=== PATIENT | female | born 1985 ===

== ENCOUNTER 2022-02-02 14:07 | Outpatient (CLI) | payer OTHER | END 2022-02-02 16:15 | disposition home or self-care (01) | LOC: PRENATAL 14:07 | PROVIDERS: ATTEND Obstetrics & Gynecology Maternal & Fetal Medicine | DX: O36.80X0 Pregnancy with inconclusive fetal viability, not applicable or unspecified (principal); Z36.0 Encounter for antenatal screening for chromosomal anomalies; Z14.8 Genetic carrier of other disease; O09.529 Supervision of elderly multigravida, unspecified trimester; Z3A.11 11 weeks gestation of pregnancy ==

== ENCOUNTER 2022-04-04 07:54 | Outpatient (CLI) | payer OTHER | END 2022-04-04 09:04 | disposition home or self-care (01) | LOC: PRENATAL 07:54 | PROVIDERS: ATTEND Obstetrics & Gynecology Maternal & Fetal Medicine | DX: O35.9XX0 Maternal care for (suspected) fetal abnormality and damage, unspecified, not applicable or unspecified (principal); O35.3XX0 Maternal care for (suspected) damage to fetus from viral disease in mother, not applicable or unspecified; O09.529 Supervision of elderly multigravida, unspecified trimester ==